=== PATIENT | female | born 1970 | race Caucasian/White ===

== ENCOUNTER 2021-09-25 00:22 | Observation (INO) ==
[2021-09-25] MEDS ORDERED: *HR* Promethazine 25 MG/ML VIAL IM PRN (03:02)
[2021-09-25] MEDS ORDERED: Ondansetron 4 MG/2 ML VIAL IVP PRN (03:02)
[2021-09-25] MEDS ORDERED: Melatonin 3 MG TABLET PO PRN (03:02)
[2021-09-25] MEDS ORDERED: Naloxone 0.4 MG/ML INJ IVP PRN (03:02)
[2021-09-25] MEDS ORDERED: Acetaminophen 325 MG TABLET PO PRN (03:28)
[2021-09-25] MEDS ORDERED: Perflutren Lipid Microsphere 1.3 ML in 0.9 % Sodium Chloride 8.7 ML IVP PRN (04:09)
[2021-09-25 04:11] LABS: Basophils % 0.4 %; Eosinophils # 0.3 K/mcL (0.0-0.6); Eosinophils % 2.8 %; Hematocrit 39.6 % (35.3-44.9); Hemoglobin 13.6 g/dL (11.5-15.4); Immature Granulocytes % 0.2 % (0-4); Lymphocytes # 4.1 K/mcL (0.6-4.6); Lymphocytes % 41.1 %; Mean Corpuscular HGB Conc 34.3 g/dL (31.6-35.5); Mean Corpuscular Hemoglobin 32.3 pg (28.0-33.3); Mean Corpuscular Volume 94.1 fL (83.0-100.0); Mean Platelet Volume 9.4 fL (9.4-12.4); Monocytes # 0.8 K/mcL (0.0-1.3); Monocytes % 7.6 %; Neutrophils # 4.8 K/mcL (1.6-8.9); Platelet Count 276 K/mcL (140-400); Red Blood Count 4.21 M/mcL (3.82-4.97); Red Cell Distribution Width 12.1 % (11.5-14.5); Segmented Neutrophils % 47.9 %; White Blood Count 9.9 K/mcL (4.3-11.1)
[2021-09-25] MEDS ORDERED: *HR* Heparin 5,000 UNIT/ML VIAL IVP PRN ×2 (04:12)
[2021-09-25] MEDS ORDERED: *HR* Heparin 5,000 UNIT/ML VIAL IVP ONE (04:12)
[2021-09-25] MEDS ORDERED: Heparin 25,000UNIT/250ML 1/2NS 25,000 UNIT/250 ML IV.SOLN IVC SCH (04:15)
[2021-09-25 04:17] LABS: Prothrombin Time 11.1 Seconds (9.4-12.1)
[2021-09-25 04:26] LABS: Alanine Aminotransferase 13 Units/L (7-52); Albumin/Globulin Ratio 1.7 (1.1-2.2); Alkaline Phosphatase 62 Units/L (34-104); Aspartate Amino Transferase 20 Units/L (13-39); BUN/Creatinine Ratio 21 (6-26); Bilirubin,Total 0.2 mg/dL (0.3-1.0); Blood Urea Nitrogen 15 mg/dL (6-20); Calcium 9.2 mg/dL (8.6-10.3); Carbon Dioxide 28 mEq/L (23-29); Chloride 107 mEq/L (98-107); Chol/HDL Ratio 4.4 (0-4.9); Cholesterol 172 mg/dL (< 200); Globulin 2.3 g/dL (2.4-3.5); Glucose 96 mg/dL (70-105); HDL Cholesterol 39 mg/dL (40-59); LDL Cholesterol,Calculated 62 mg/dL (< 100); Osmolality,Calculated 295 (280-300); Potassium 3.8 mEq/L (3.5-5.1); Sodium 142 mEq/L (136-145); Total Protein 6.3 g/dL (6.4-8.9); Triglycerides 353 mg/dL (< 150); eGFR For African Americans > 60 (> 60); eGFR For Non-African Americans > 60 (> 60)
[2021-09-25] MEDS ORDERED: Nitroglycerin 0.4 MG TAB.SUBL SL PRN (08:58)
[2021-09-25] MEDS: Nicotine 21 MG PATCH.TD24 TD SCH (09:33)
[2021-09-25] MEDS: Aspirin Enteric Coated 81 MG Tablet PO SCH (09:33)
[2021-09-25] MEDS ORDERED: Heparin 1,000 UNITS/500 mL 500 ML ONE ×2 (11:54→13:34)
[2021-09-25] MEDS ORDERED: ISOVUE-370 200 ML INFUS..BTL ONE ×2 (11:54→12:59)
[2021-09-25] MEDS ORDERED: 0.9 % Sodium Chloride 2,000 ML ONE (11:54)
[2021-09-25] MEDS ORDERED: *HR* Heparin 10,000 UNIT/10 ML VIAL ONE (11:54)
[2021-09-25] MEDS ORDERED: Nitroglycerin 1,000 MCG/5 ML VIAL IV ONE (11:54)
[2021-09-25] MEDS ORDERED: *HR* Midazolam HCl 2 MG/2 ML VIAL ONE (12:04)
[2021-09-25] MEDS ORDERED: *HR* FentaNYL (PF) 100 MCG/2 ML VIAL ONE ×2 (12:04→13:52)
[2021-09-25] MEDS ORDERED: Ondansetron 4 MG/2 ML VIAL ONE (12:26)
[2021-09-25] MEDS ORDERED: *HR* Ticagrelor 90 MG TABLET ONE (12:54)
[2021-09-25] MEDS ORDERED: Tirofiban 12.5 MG/250ML 12.5 MG/250 ML BAG ONE (12:54)
[2021-09-25] MEDS ORDERED: Tirofiban 12.5 MG/250ML 12.5 MG/250 ML BAG IVC SCH (15:15)
[2021-09-25] MEDS: Nitroglycerin 1 INCH/GM PACKET TP SCH ×3 (16:17→23:08)
[2021-09-25] MEDS: *HR* Ticagrelor 90 MG TABLET PO SCH (21:38)
[2021-09-26 04:43] VITALS: BP 137/92; PULSE 78; TEMP 98.3; O2SAT 97
[2021-09-26] MEDS: Nicotine 21 MG PATCH.TD24 TD SCH (07:48)
[2021-09-26] MEDS: *HR* Ticagrelor 90 MG TABLET PO SCH (07:49)
[2021-09-26] MEDS: Aspirin Enteric Coated 81 MG Tablet PO SCH (07:49)
[2021-09-26] MEDS: Nitroglycerin 1 INCH/GM PACKET TP SCH (07:52)
[2021-09-26] MEDS ORDERED: Aspirin 81 MG TAB.CHEW PO SCH (09:00)
== END 2021-09-26 15:06 | disposition home or self-care (01) ==
LOC: 2ANU
PROVIDERS: ADMIT Internal Medicine; ATTEND Internal Medicine

== ENCOUNTER 2021-10-29 01:54 | Inpatient (IN) ==
[2021-10-29] MEDS ORDERED: *HR* OxyCODONE Immed Rel 5 MG TABLET PO PRN (03:52)
[2021-10-29] MEDS ORDERED: Melatonin 3 MG TABLET PO PRN (03:52)
[2021-10-29] MEDS ORDERED: Ondansetron ODT 4 MG TAB.RAPDIS SL PRN (03:52)
[2021-10-29] MEDS ORDERED: Naloxone 0.4 MG/ML INJ IVP PRN (03:52)
[2021-10-29] MEDS ORDERED: Nitroglycerin 0.4 MG TAB.SUBL SL PRN (03:55)
[2021-10-29] MEDS: 0.9 % Sodium Chloride 1,000 ML IVC SCH ×2 (04:23→23:37)
[2021-10-29 05:47] LABS: Hematocrit 37.5 % (35.3-44.9); Hemoglobin 13.1 g/dL (11.5-15.4); Mean Corpuscular HGB Conc 34.9 g/dL (31.6-35.5); Mean Corpuscular Hemoglobin 31.7 pg (28.0-33.3); Mean Corpuscular Volume 90.8 fL (83.0-100.0); Platelet Count 226 K/mcL (140-400); Red Blood Count 4.13 M/mcL (3.82-4.97); Red Cell Distribution Width 11.9 % (11.5-14.5); White Blood Count 6.3 K/mcL (4.3-11.1)
[2021-10-29 06:13] LABS: BUN/Creatinine Ratio 26 (6-26); Blood Urea Nitrogen 19 mg/dL (6-20); Calcium 9.6 mg/dL (8.6-10.3); Carbon Dioxide 24 mEq/L (23-29); Chloride 106 mEq/L (98-107); Chol/HDL Ratio 4.9 (0-4.9); Cholesterol 171 mg/dL (< 200); Glucose 103 mg/dL (70-105); HDL Cholesterol 35 mg/dL (40-59); LDL Cholesterol,Calculated 69 mg/dL (< 100); Magnesium 1.8 mg/dL (1.6-2.6); Osmolality,Calculated 291 (280-300); Potassium 3.4 mEq/L (3.5-5.1); Sodium 139 mEq/L (136-145); Triglycerides 336 mg/dL (< 150); Troponin I < 0.03 ng/mL (< 0.04); eGFR For African Americans > 60 (> 60); eGFR For Non-African Americans > 60 (> 60)
[2021-10-29] MEDS: Acetaminophen 325 MG TABLET PO PRN (06:39)
[2021-10-29 07:16] LABS: Estimated Average Glucose 108 mg/dl; Hemoglobin A1C 5.4 %
[2021-10-29] MEDS: Aspirin 81 MG TAB.CHEW PO SCH (08:43)
[2021-10-29 09:02] LABS: Heparin anti-factor XA UFH < 0.04 IU/mL (0.30-0.70)
[2021-10-29] MEDS ORDERED: *HR* Heparin 5,000 UNIT/ML VIAL IVP ONE (11:15)
[2021-10-29] MEDS ORDERED: *HR* Heparin 5,000 UNIT/ML VIAL IVP PRN ×2 (11:15)
[2021-10-29 11:39] LABS: Prothrombin Time 11.3 Seconds (9.4-12.1)
[2021-10-29] MEDS: Heparin 25,000UNIT/250ML 1/2NS 25,000 UNIT/250 ML IV.SOLN IVC SCH (12:38)
[2021-10-30] MEDS: Aspirin 81 MG TAB.CHEW PO SCH (09:06)
[2021-10-30] MEDS: Acetaminophen 325 MG TABLET PO PRN (12:02)
[2021-10-30] MEDS: Heparin 25,000UNIT/250ML 1/2NS 25,000 UNIT/250 ML IV.SOLN IVC SCH (17:57)
[2021-10-30] MEDS: Chlorhexidine Rinse 15 ML MOUTHWASH MM SCH (19:33)
[2021-10-30] MEDS: *HR* HYDROcodone/Acet 5/325 mg TABLET PO PRN (19:33)
[2021-10-31 02:19] LABS: Basophils % 0.5 %; Eosinophils # 0.2 K/mcL (0.0-0.6); Eosinophils % 3.3 %; Hematocrit 41.9 % (35.3-44.9); Immature Granulocytes % 0.2 % (0-4); Lymphocytes # 2.9 K/mcL (0.6-4.6); Lymphocytes % 45.9 %; Mean Corpuscular HGB Conc 35.3 g/dL (31.6-35.5); Mean Corpuscular Volume 90.5 fL (83.0-100.0); Monocytes # 0.5 K/mcL (0.0-1.3); Monocytes % 7.5 %; Neutrophils # 2.7 K/mcL (1.6-8.9); Platelet Count 252 K/mcL (140-400); Red Blood Count 4.63 M/mcL (3.82-4.97); Segmented Neutrophils % 42.6 %; White Blood Count 6.4 K/mcL (4.3-11.1)
[2021-10-31 02:25] LABS: Hemoglobin 14.8 g/dL (11.5-15.4)
[2021-10-31 02:27] LABS: Prothrombin Time 11.3 Seconds (9.4-12.1)
[2021-10-31 02:30] LABS: Activated Partial Thrombo Time 46.1 Seconds (26.0-36.0)
[2021-10-31 02:41] LABS: BUN/Creatinine Ratio 17 (6-26); Blood Urea Nitrogen 10 mg/dL (6-20); Calcium 9.9 mg/dL (8.6-10.3); Carbon Dioxide 22 mEq/L (23-29); Chloride 108 mEq/L (98-107); Glucose 121 mg/dL (70-105); Magnesium 1.9 mg/dL (1.6-2.6); Osmolality,Calculated 288 (280-300); Phosphorous 3.4 mg/dL (2.7-4.5); Potassium 3.6 mEq/L (3.5-5.1); Sodium 139 mEq/L (136-145); eGFR For African Americans > 60 (> 60); eGFR For Non-African Americans > 60 (> 60)
[2021-10-31] MEDS ORDERED: Aspirin 81 MG TAB.CHEW PO ONE (06:00)
[2021-10-31] MEDS ORDERED: CeFAZolin Syr 2,000MG/20 ML 2,000 MG/20 ML SYRINGE IVPB ONE (06:00)
[2021-10-31] MEDS: Chlorhexidine Rinse 15 ML MOUTHWASH MM SCH ×2 (06:06→21:07)
[2021-10-31] MEDS ORDERED: DOBUTamine 1,000 MG/250 ML BAG ONE (06:18)
[2021-10-31] MEDS ORDERED: NiCARdipine 2.5 MG/10 ML Syringe IVPB ONE (06:18)
[2021-10-31] MEDS ORDERED: *HR* Vasopressin 20 UNIT/ML VIAL ONE (06:18)
[2021-10-31] MEDS ORDERED: *HR* FentaNYL (PF) 1,000 MCG/20 ML VIAL ONE (06:28)
[2021-10-31] MEDS ORDERED: *HR* Propofol 200 MG/20 ML VIAL IVP ONE (06:28)
[2021-10-31] MEDS ORDERED: *HR* Midazolam HCl 5 MG/5 ML VIAL IVP ONE ×2 (06:28→11:08)
[2021-10-31] MEDS ORDERED: *HR* Rocuronium Bromide 50 MG/5 ML VIAL ONE ×2 (06:32→09:20)
[2021-10-31] MEDS ORDERED: Famotidine 20 MG/2 ML VIAL ONE (06:33)
[2021-10-31] MEDS ORDERED: *HR* Magnesium Sulfate 1 GM/2 ML VIAL ONE (06:33)
[2021-10-31] MEDS ORDERED: Lidocaine 2% Syringe 100 MG/5 ML ONE (06:33)
[2021-10-31] MEDS ORDERED: Tranexamic Acid 1,000 MG/10 ML VIAL ONE (06:33)
[2021-10-31] MEDS ORDERED: *HR* Norepinephrine 4 MG/4 ML VIAL IVC ONE (06:34)
[2021-10-31] MEDS ORDERED: Papaverine 60 MG/2 ML VIAL IVP ONE (06:39)
[2021-10-31] MEDS ORDERED: del Nido Cardioplegia Solution PF ONE ×2 (07:00)
[2021-10-31] MEDS ORDERED: Norepinephrine 4 MG in 0.9 % Sodium Chloride 250 ML IVC PRN (07:00)
[2021-10-31] MEDS ORDERED: Buckersberg's Blood Cardioplegia PF ONE (07:00)
[2021-10-31] MEDS ORDERED: Heparin 15,000 UNIT in 0.9 % Sodium Chloride 500 ML IV ONE (07:00)
[2021-10-31 07:28] LABS: ABG Base Excess -3 mEq/L (-2 to 3); ABG Chloride 112 mEq/L (98-107); ABG Glucose 90 mg/dL (60-95); ABG HCO3 21 mEq/L (21-27); ABG Ionized Calcium 1.14 mmol/L (1.15-1.35); ABG Oxygen Saturation 100 % (95-98); ABG PCO2 32 mmHg (35-45); ABG PH 7.42 pH Units (7.32-7.45); ABG PO2 282 mmHg (85-104); ABG TCO2 22 mEq/L (20-26)
[2021-10-31] MEDS ORDERED: *HR* FentaNYL (PF) 250 MCG/5 ML VIAL ONE (09:23)
[2021-10-31 09:53] LABS: ABG Base Excess -3 mEq/L (-2 to 3); ABG Chloride 108 mEq/L (98-107); ABG Glucose 132 mg/dL (60-95); ABG HCO3 21 mEq/L (21-27); ABG Ionized Calcium 1.16 mmol/L (1.15-1.35); ABG Oxygen Saturation 96 % (95-98); ABG PCO2 37 mmHg (35-45); ABG PH 7.37 pH Units (7.32-7.45); ABG PO2 82 mmHg (85-104); ABG TCO2 23 mEq/L (20-26)
[2021-10-31] MEDS ORDERED: Ondansetron 4 MG/2 ML VIAL ONE (10:08)
[2021-10-31] MEDS ORDERED: Protamine Sulfate 250 MG/25 ML VIAL IVP ONE (10:26)
[2021-10-31 10:28] LABS: ABG Base Excess -3 mEq/L (-2 to 3); ABG Chloride 110 mEq/L (98-107); ABG Glucose 125 mg/dL (60-95); ABG HCO3 20 mEq/L (21-27); ABG Ionized Calcium 1.06 mmol/L (1.15-1.35); ABG Oxygen Saturation 98 % (95-98); ABG PCO2 31 mmHg (35-45); ABG PH 7.43 pH Units (7.32-7.45); ABG PO2 103 mmHg (85-104); ABG TCO2 21 mEq/L (20-26)
[2021-10-31] MEDS ORDERED: Calcium Gluconate 1,000 MG/10 ML VIAL ONE (10:28)
[2021-10-31] MEDS ORDERED: *HR* Dextrose 50 % in Water (Syg) 50 ML SYRINGE IVP PRN (10:37)
[2021-10-31] MEDS ORDERED: Calcium Gluconate 1gm/50mL 1 GM/50 ML BAG IVPB PRN (10:37)
[2021-10-31] MEDS ORDERED: Insulin Regular, Human 100 UNIT/ML IV PRN (10:37)
[2021-10-31] MEDS ORDERED: Potassium Chloride 40 MEQ/200 ML BAG IVPB PRN (10:37)
[2021-10-31 10:43] LABS: ABG Base Excess -4 mEq/L (-2 to 3); ABG Chloride 109 mEq/L (98-107); ABG Glucose 128 mg/dL (60-95); ABG HCO3 21 mEq/L (21-27); ABG Ionized Calcium 1.24 mmol/L (1.15-1.35); ABG Oxygen Saturation 100 % (95-98); ABG PCO2 36 mmHg (35-45); ABG PH 7.37 pH Units (7.32-7.45); ABG PO2 218 mmHg (85-104); ABG TCO2 22 mEq/L (20-26)
[2021-10-31] MEDS ORDERED: Albumin Human 5% 25.0 GM/500 ML IV.SOLN ONE (11:17)
[2021-10-31] MEDS: niCARdipine 20 MG/200 ML MLS IVC SCH ×2 (11:30→17:07)
[2021-10-31] MEDS ORDERED: niCARdipine 20 MG/200 ML MLS IVC ONE (11:36)
[2021-10-31 11:44] LABS: ABG Base Excess -2 mEq/L (-2 to 3); ABG HCO3 24 mEq/L (21-27); ABG Oxygen Saturation 100 % (95-98); ABG PCO2 45 mmHg (35-45); ABG PH 7.34 pH Units (7.32-7.45); ABG PO2 280 mmHg (85-104); ABG TCO2 26 mEq/L (20-26); Blood Gas VT 450 cc
[2021-10-31] MEDS ORDERED: *HR* FentaNYL (PF) 100 MCG/2 ML VIAL ONE (11:44)
[2021-10-31] MEDS: Dexmedetomidine HCl 400 MCG/100 ML MLS IVC SCH (12:00)
[2021-10-31 12:04] LABS: Basophils % 0.3 %; Eosinophils # 0.1 K/mcL (0.0-0.6); Eosinophils % 1.3 %; Hematocrit 38.9 % (35.3-44.9); Hemoglobin 13.6 g/dL (11.5-15.4); Immature Granulocytes % 0.6 % (0-4); Lymphocytes # 1.1 K/mcL (0.6-4.6); Mean Corpuscular Hemoglobin 31.6 pg (28.0-33.3); Mean Corpuscular Volume 90.3 fL (83.0-100.0); Mean Platelet Volume 8.8 fL (9.4-12.4); Monocytes # 0.1 K/mcL (0.0-1.3); Monocytes % 1.5 %; Neutrophils # 7.2 K/mcL (1.6-8.9); Platelet Count 182 K/mcL (140-400); Red Blood Count 4.31 M/mcL (3.82-4.97); Red Cell Distribution Width 11.9 % (11.5-14.5); Segmented Neutrophils % 83.3 %; White Blood Count 8.6 K/mcL (4.3-11.1)
[2021-10-31] MEDS ORDERED: Dexmedetomidine HCl 400 MCG/100 ML MLS IVC ONE (12:05)
[2021-10-31 12:13] LABS: INR 1.2; Prothrombin Time 13.1 Seconds (9.4-12.1)
[2021-10-31 12:16] LABS: Heparin anti-factor XA UFH < 0.04 IU/mL (0.30-0.70)
[2021-10-31 12:28] LABS: BUN/Creatinine Ratio 20 (6-26); Blood Urea Nitrogen 11 mg/dL (6-20); Calcium 9.2 mg/dL (8.6-10.3); Carbon Dioxide 24 mEq/L (23-29); Chloride 107 mEq/L (98-107); Glucose 139 mg/dL (70-105); Magnesium 1.8 mg/dL (1.6-2.6); Osmolality,Calculated 284 (280-300); Potassium 3.7 mEq/L (3.5-5.1); Sodium 136 mEq/L (136-145); eGFR For African Americans > 60 (> 60); eGFR For Non-African Americans > 60 (> 60)
[2021-10-31 12:38] LABS: ABG Base Excess -3 mEq/L (-2 to 3); ABG HCO3 24 mEq/L (21-27); ABG Oxygen Saturation 99 % (95-98); ABG PCO2 51 mmHg (35-45); ABG PH 7.28 pH Units (7.32-7.45); ABG PO2 148 mmHg (85-104); ABG TCO2 25 mEq/L (20-26); Blood Gas Modality CPAP/PS; Blood Gas Pressure Support 5 cm H2O
[2021-10-31] MEDS: Promethazine 6.25 MG in Water for inj. (sterile) 20 ML IVPB PRN ×2 (13:06→16:33)
[2021-10-31] MEDS: Norepinephrine 4 MG/254 ML IV.SOLN IVC SCH (13:09)
[2021-10-31] MEDS: DOBUTamine 1,000 MG/250 ML BAG IVC SCH (13:09)
[2021-10-31] MEDS: Albumin Human 5% 12.5 GM/250 ML IV.SOLN IVPB PRN (13:37)
[2021-10-31] MEDS: *HR* FentaNYL (PF) 100 MCG/2 ML VIAL IVP PRN ×4 (13:46→20:29)
[2021-10-31] MEDS: Pantoprazole 40 MG VIAL IVP SCH (13:46)
[2021-10-31] MEDS: *HR* OxyCODONE/APAP 5/325 TABLET PO PRN ×2 (14:17→19:34)
[2021-10-31] MEDS: Ondansetron 4 MG/2 ML VIAL IVP PRN (15:03)
[2021-10-31] MEDS: CeFAZolin 2 GM/120 ML BAG IVPB SCH ×2 (16:32→23:42)
[2021-10-31] MEDS: Ketorolac 30 MG/ML VIAL IVP SCH ×2 (16:41→23:43)
[2021-11-01] MEDS: Ondansetron 4 MG/2 ML VIAL IVP PRN ×2 (00:13→08:44)
[2021-11-01 03:46] LABS: Basophils % 0.2 %; Eosinophils % 0.1 %; Hematocrit 36.1 % (35.3-44.9); Hemoglobin 12.6 g/dL (11.5-15.4); Immature Granulocytes % 0.3 % (0-4); Lymphocytes % 15.5 %; Mean Corpuscular HGB Conc 34.9 g/dL (31.6-35.5); Mean Corpuscular Hemoglobin 31.7 pg (28.0-33.3); Mean Corpuscular Volume 90.7 fL (83.0-100.0); Mean Platelet Volume 9.1 fL (9.4-12.4); Monocytes # 1.1 K/mcL (0.0-1.3); Monocytes % 8.6 %; Neutrophils # 9.5 K/mcL (1.6-8.9); Platelet Count 229 K/mcL (140-400); Red Blood Count 3.98 M/mcL (3.82-4.97); Segmented Neutrophils % 75.3 %; White Blood Count 12.6 K/mcL (4.3-11.1)
[2021-11-01] MEDS: *HR* FentaNYL (PF) 100 MCG/2 ML VIAL IVP PRN ×2 (03:55→08:50)
[2021-11-01 03:56] LABS: INR 1.1; Prothrombin Time 12.8 Seconds (9.4-12.1)
[2021-11-01 03:58] LABS: Activated Partial Thrombo Time 29.5 Seconds (26.0-36.0)
[2021-11-01 04:05] LABS: BUN/Creatinine Ratio 19 (6-26); Blood Urea Nitrogen 11 mg/dL (6-20); Calcium 9.1 mg/dL (8.6-10.3); Carbon Dioxide 23 mEq/L (23-29); Chloride 106 mEq/L (98-107); Glucose 126 mg/dL (70-105); Osmolality,Calculated 285 (280-300); Sodium 137 mEq/L (136-145); eGFR For African Americans > 60 (> 60); eGFR For Non-African Americans > 60 (> 60)
[2021-11-01] MEDS: Albumin Human 5% 12.5 GM/250 ML IV.SOLN IVPB PRN (04:07)
[2021-11-01] MEDS: niCARdipine 20 MG/200 ML MLS IVC SCH ×4 (05:23→15:13)
[2021-11-01] MEDS: *HR* OxyCODONE/APAP 5/325 TABLET PO PRN ×3 (05:45→19:03)
[2021-11-01] MEDS: Ketorolac 30 MG/ML VIAL IVP SCH ×2 (05:45→12:59)
[2021-11-01] MEDS: Chlorhexidine Rinse 15 ML MOUTHWASH MM SCH ×2 (08:31→19:35)
[2021-11-01] MEDS: Pantoprazole 40 MG VIAL IVP SCH (08:31)
[2021-11-01] MEDS: Dexmedetomidine HCl 400 MCG/100 ML MLS IVC SCH (08:31)
[2021-11-01] MEDS: CeFAZolin 2 GM/120 ML BAG IVPB SCH ×2 (08:39→15:52)
[2021-11-01] MEDS ORDERED: Aspirin Enteric Coated 81 MG Tablet PO SCH (09:00)
[2021-11-01] MEDS: Norepinephrine 4 MG/254 ML IV.SOLN IVC SCH (09:15)
[2021-11-01] MEDS: DOBUTamine 1,000 MG/250 ML BAG IVC SCH (12:25)
[2021-11-01] MEDS: *HR* HYDROcodone/Acet 5/325 mg TABLET PO PRN ×2 (15:51→22:00)
[2021-11-01] MEDS: Aspirin 81 MG TAB.CHEW PO SCH (16:40)
[2021-11-02] MEDS: niCARdipine 20 MG/200 ML MLS IVC SCH ×3 (00:19→07:31)
[2021-11-02] MEDS: Dexmedetomidine HCl 400 MCG/100 ML MLS IVC SCH (00:19)
[2021-11-02] MEDS: CeFAZolin 2 GM/120 ML BAG IVPB SCH (00:27)
[2021-11-02] MEDS: *HR* OxyCODONE/APAP 5/325 TABLET PO PRN ×2 (01:16→07:27)
[2021-11-02] MEDS: *HR* HYDROcodone/Acet 5/325 mg TABLET PO PRN (03:40)
[2021-11-02 04:02] VITALS: TEMP 98
[2021-11-02 05:48] LABS: Basophils % 0.2 %; Eosinophils # 0.2 K/mcL (0.0-0.6); Eosinophils % 1.9 %; Hematocrit 30.6 % (35.3-44.9); Immature Granulocytes % 0.2 % (0-4); Lymphocytes % 23.1 %; Mean Corpuscular Hemoglobin 31.4 pg (28.0-33.3); Mean Corpuscular Volume 92.4 fL (83.0-100.0); Mean Platelet Volume 9.2 fL (9.4-12.4); Monocytes # 0.6 K/mcL (0.0-1.3); Monocytes % 7.5 %; Neutrophils # 5.7 K/mcL (1.6-8.9); Platelet Count 178 K/mcL (140-400); Red Blood Count 3.31 M/mcL (3.82-4.97); Red Cell Distribution Width 12.2 % (11.5-14.5); Segmented Neutrophils % 67.1 %; White Blood Count 8.5 K/mcL (4.3-11.1)
[2021-11-02 05:49] LABS: Hemoglobin 10.4 g/dL (11.5-15.4)
[2021-11-02 05:54] LABS: BUN/Creatinine Ratio 19 (6-26); Blood Urea Nitrogen 14 mg/dL (6-20); Calcium 9.2 mg/dL (8.6-10.3); Carbon Dioxide 27 mEq/L (23-29); Chloride 106 mEq/L (98-107); Glucose 104 mg/dL (70-105); Magnesium 1.9 mg/dL (1.6-2.6); Osmolality,Calculated 287 (280-300); Sodium 138 mEq/L (136-145); eGFR For African Americans > 60 (> 60); eGFR For Non-African Americans > 60 (> 60)
[2021-11-02 07:17] VITALS: PULSE 91
[2021-11-02] MEDS ORDERED: *HR* HYDROcodone/Acet 5/325 mg TABLET PO PRN (07:39)
[2021-11-02] MEDS ORDERED: D5% in Water 1,000 ML IVC PRN (07:39)
[2021-11-02] MEDS ORDERED: Acetaminophen 325 MG TABLET PO PRN (07:39)
[2021-11-02] MEDS ORDERED: *HR* Dextrose 50 % in Water (Syg) 50 ML SYRINGE IVP PRN (07:39)
[2021-11-02] MEDS ORDERED: Naloxone 0.4 MG/ML INJ IVP PRN (07:39)
[2021-11-02] MEDS ORDERED: Dextrose 4 GM Chewable Tablets PO PRN ×2 (07:39)
[2021-11-02] MEDS ORDERED: Albumin Human 5% 12.5 GM/250 ML IV.SOLN IVPB PRN (07:39)
[2021-11-02] MEDS ORDERED: Ondansetron 4 MG/2 ML VIAL IVP PRN (07:39)
[2021-11-02] MEDS ORDERED: *HR* OxyCODONE/APAP 5/325 TABLET PO PRN (07:39)
[2021-11-02] MEDS ORDERED: Insulin LISPRO 300 UNITS/3 ML VIAL SUBQ SCH (07:39)
[2021-11-02] MEDS ORDERED: Melatonin 3 MG TABLET PO PRN (07:39)
[2021-11-02] MEDS ORDERED: *HR* Heparin 5,000 UNIT/ML VIAL SQ SCH (08:00)
[2021-11-02] MEDS: Insulin LISPRO 300 UNITS/3 ML VIAL SUBQ SCH ×2 (08:09→12:07)
[2021-11-02] MEDS ORDERED: Chlorhexidine Rinse 15 ML MOUTHWASH MM SCH (09:00)
[2021-11-02] MEDS ORDERED: Aspirin Enteric Coated 81 MG Tablet PO SCH (09:00)
[2021-11-02] MEDS ORDERED: Pantoprazole 40 MG VIAL IVP SCH (09:00)
[2021-11-02] MEDS ORDERED: CeFAZolin 2 GM/120 ML BAG IVPB SCH (09:00)
[2021-11-02] MEDS ORDERED: cephALEXin 500 MG CAPSULE PO ONE (09:42)
[2021-11-02 11:54] VITALS: BP 111/73; O2SAT 99
== END 2021-11-02 13:16 | disposition home or self-care (01) | DRG 166 ==
LOC: 3BNU → SUATTDRO 03:35 → 3BNU 10-30 20:49 → ICNU 10-31 13:13 → 2NNU 11-02 03:49
PROVIDERS: ADMIT Family Medicine; ATTEND Internal Medicine